=== PATIENT | male | born 1965 | race Two or more races ===

== ENCOUNTER 2021-07-06 18:26 | Emergency (ER) | payer SELFPAY ==
[~2021-07-06] VITALS: Ht 172.7 cm; Wt 81.6 kg
[2021-07-06] MEDS ORDERED: ETOMIDATE (2MG/ML) 20ML VIAL IV ONE (20:30)
[2021-07-06 22:35] VITALS: BP 155/104
== END 2021-07-06 22:40 | disposition home or self-care (01) ==
LOC: ER 18:31
DX: S52.122A Displaced fracture of head of left radius, initial encounter for closed fracture (principal); W01.0XXA Fall on same level from slipping, tripping and stumbling without subsequent striking against object, initial encounter; Y93.89 Activity, other specified; Y92.89 Other specified places as the place of occurrence of the external cause; Y99.8 Other external cause status
CPT/HCPCS: 24600; 73030; 73070; 73080